=== PATIENT | male | born 1970 | race Caucasian/White ===

== ENCOUNTER 2022-08-04 19:03 | Emergency (ER) | payer MEDICAID ==
[~2022-08-04] VITALS: Ht 170.2 cm; Wt 68.0 kg
[2022-08-04 19:15] VITALS: BP 136/66
== END 2022-08-04 22:00 | disposition left against medical advice (07) ==
LOC: EDBD 19:03 → ER 19:03
DX: Z53.21 Procedure and treatment not carried out due to patient leaving prior to being seen by health care provider (principal)

== ENCOUNTER 2022-08-10 01:57 | Emergency (ER) | payer MEDICAID ==
[~2022-08-10] VITALS: Ht 167.6 cm; Wt 68.0 kg
[2022-08-10] MEDS ORDERED: IBUPROFEN 400MG TABLET PO ONE (03:00)
[2022-08-10 03:13] VITALS: BP 127/65
[2022-08-10 03:15] LABS: BASOPHILS % 0.8 % (0.0-2.0); EOSINOPHILS % 2.4 % (0.0-5.0); HEMATOCRIT. 43.2 % (42.0-52.0); HEMOGLOBIN. 14.8 g/dL (14.0-18.0); LYMPHOCYTES % 41.4 % (20.0-50.0); MEAN CORPUSCULAR VOLUME 87.8 fL (80.0-94.0); MEAN PLATELET VOLUME 7.3 fl (7.4-10.4); MONOCYTES % 10.2 % (2.0-8.0); NEUTROPHILS % 45.2 % (40.0-76.0); PLATELET 233 x1000/uL (130-400); RED BLOOD CELL COUNT 4.92 mill/uL (4.7-6.1)
[2022-08-10 05:02] LABS: CHLORIDE 105 mEq/L (98-107)
[2022-08-10] MEDS ORDERED: IBUP-2028 MT (05:48)
== END 2022-08-10 06:16 | disposition home or self-care (01) ==
LOC: ER 01:57
DX: R07.89 Other chest pain (principal); R42 Dizziness and giddiness; I44.4 Left anterior fascicular block; I44.0 Atrioventricular block, first degree
CPT/HCPCS: 36415; 71045; 80053; 83880; 84484; 85025; 85379; 93005; 99285

== ENCOUNTER 2023-06-13 04:03 | Emergency (ER) | payer MEDICAID ==
[~2023-06-13] VITALS: Ht 167.6 cm; Wt 67.1 kg
[~2023-06-13 04:03] MED LIST: IBUP-2028 MT
[2023-06-13 04:07] VITALS: BP 120/67; PULSE 54; RESP 16; TEMP 99; O2SAT 98
== END 2023-06-13 08:08 | disposition left against medical advice (07) ==
LOC: ER 04:03
DX: H57.12 Ocular pain, left eye (principal); Z53.21 Procedure and treatment not carried out due to patient leaving prior to being seen by health care provider
CPT/HCPCS: 99281